=== PATIENT | female | born 1980 | race Caucasian/White ===

== ENCOUNTER → 2017-07-31 | Outpatient (CLI) | payer OTHER ==
--- NOTE | 2017-07-31 17:33 | EXE ---
[place] [address] STRESS ECHOCARDIOGRAM Name: DOROTHEA RAZO Room: [facility]#: [id number] Admission: 07/31/17 Attend Phys: Suzie Solorzano, Discharge: Date of : 78 Date of Service: 07/31/17 1733 Report #: [id number] THIS REPORT FOR: //name// APPROVED REPORT Study performed: 07/31/2017 11:33:12 Exam: Stress Echocardiogram Indication: Dyspnea , Tachycardia Patient Location: Out-Patient Stress Nurse: Desire Loza RN Supervising Physician: Rhett Russell MD Status: routine Ht: 5 ft 3 in HR: 60 bpm BP: 114/74 mmHg Medical History Cardiac Risk Factors: Hyperlipidemia, FHX of CAD, HTN Procedure The patient underwent an Exercise Stress Test using the Blake Protocol. Blood pressure, heart rate, and EKG were monitored. An Echocardiogram was performed by copy room technician in four stages in quad fashion. At peak stress, four selected images were obtained and placed side by side with resting images for comparison. Stress Test Details Stress Test: Exercise stress testing was performed using a Blake protocol. HR Resting HR: 60 bpm Max Heart Rate (APMHR): 183 bpm Max HR Achieved: 169 bpm Target HR (85% APMHR): 155 bpm % of APMHR: 92 Recovery HR: 82 bpm HR response to stress: Normal HR response to stress BP Resting BP: 114/74 mmHg Max BP: 144/74 mmHg Recovery BP: 120/79 mmHg ECG Resting ECG: Sinus Rhythm Stress ECG: [place] [address] STRESS ECHOCARDIOGRAM Name: DOROTHEA RAZO Room: [facility]#: [id number] Admission: 07/31/17 Attend Phys: Suzie Solorzano, Discharge: Date of : 78 Date of Service: 07/31/17 1733 Report #: [id number] Maximum ST Deviation: 0 mm Arrhythmia: None Recovery ECG: Sinus Rhythm Recovery ST Deviation: 0 mm Recovery Arrhythmia: None Clinical Reason for Termination: Maximal effort, Completed protocol, Dyspnea Exercise duration: 12 min sec Highest Stage Achieved: Stage 4: 4.2 mph at 16% grade. Exercise capacity: 13.48 METs Pre-Stress Echo The resting Echocardiogram showed normal left ventricular contractility with an estimated Ejection Fraction of about 55-60%. Post-Stress Echo The stress Echocardiogram showed normal left ventricular contractility with an estimated Ejection Fraction of about >70%. Conclusion Clinical Response: Non-ischemic Exercise Capacity: Superior Stress ECG Response: Non-ischemic Stress Echo Images: Non-ischemic low risk stress echo for future cardiac events Other Information Study Quality: Good <Conclusion> low risk stress echo for future cardiac events <ELECTRONICALLY SIGNED> By: Rhett Russell MD, FACC 07/31/17 1733 1733 173 Rhett Russell MD, FACC /INF
--- NOTE | 2017-07-31 17:38 | 2DMMODE ---
[place] [address] 2 D/M-MODE ECHOCARDIOGRAM Name: DOROTHEA RAZO Room: [facility]#: [id number] Admission: 07/31/17 Attend Phys: Suzie Solorzano, Discharge: Date of : 78 Date of Service: 07/31/17 1737 Report #: [id number] THIS REPORT FOR: //name// APPROVED REPORT Study performed: 07/31/2017 10:15:56 EXAM: Comprehensive 2D, Doppler, and color-flow Echocardiogram Patient Location: Out-Patient Status: routine BSA: 1.74 HR: 58 bpm BP: 118/80 mmHg Other Information Study Quality: Good Indications Tachycardia 2D Dimensions IVSd: 14.34 (7-11mm) LVOT Diam: 20.05 (18-24mm) LVDd: 41.86 mm PWd: 8.98 (7-11mm) Ascending Ao: 27.24 (22-36mm) LVDs: 19.62 (25-40mm) Aortic Root: 24.01 mm Volumes Left Atrial Volume (Systole) LA ESV Index: 15.30 mL/m2 Aortic Valve AoV Peak Kyaw.: 1.27 m/s AO Peak Gr.: 6.46 mmHg LVOT Max P.51 mmHg AO Mean Gr.: 3.85 mmHg LVOT Mean P.64 mmHg LVOT Max V: 1.17 m/s AO V2 VTI: 26.79 cm LVOT Mean V: 0.74 m/s VALE (VTI): 3.13 cm2 LVOT V1 VTI: 26.51 cm Mitral Valve E/A Ratio: 1.52 MV Decel. Time: 227.91 ms MV E Max Kyaw.: 0.74 m/s MV PHT: 66.09 [place] [address] 2 D/M-MODE ECHOCARDIOGRAM Name: DOROTHEA RAZO Room: [facility]#: [id number] Admission: 07/31/17 Attend Phys: Suzie Solorzano, Discharge: Date of : 78 Date of Service: 07/31/17 1737 Report #: [id number] MVA (PHT): 3.33 cm2 TDI E/Lateral E': 3.70 E/Medial E': 6.73 Medial E' Kyaw.: 0.11 m/s Lateral E' Kyaw.: 0.20 m/s Pulmonary Valve PV Peak Kyaw.: 0.94 m/s PV Peak Gr.: 3.50 mmHg Left Ventricle The left ventricle is normal size. There is normal LV segmental wall motion. There is normal left ventricular wall thickness. Left ventricular systolic function is normal. The left ventricular ejection fraction is within the normal range. LVEF is 55-60%. The left ventricular diastolic function is normal. Right Ventricle The right ventricle is normal size. The right ventricular systolic function is normal. Atria The left atrium size is normal. The right atrium size is normal. Aortic Valve The aortic valve is normal in structure. No aortic regurgitation is present. There is no aortic valvular stenosis. Mitral Valve The mitral valve is normal in structure. Trace mitral regurgitation. No evidence of mitral valve stenosis. Tricuspid Valve The tricuspid valve is normal in structure. There is no tricuspid valve regurgitation noted. Pulmonic Valve The pulmonary valve is normal in structure. There is no pulmonic valvular regurgitation. Great Vessels The aortic root is normal in size. IVC is normal in size and collapses with >50% inspiration [place] [address] 2 D/M-MODE ECHOCARDIOGRAM Name: LUDWIG ALEXANDRODOROTHEA Emmanuel Room: [facility]#: [id number] Admission: 07/31/17 Attend Phys: Suzie Solorzano, Discharge: Date of : 78 Date of Service: 07/31/17 1737 Report #: [id number] There is no pericardial effusion. <Conclusion> Left ventricular systolic function is normal. The left ventricular ejection fraction is within the normal range. <ELECTRONICALLY SIGNED> By: Rhett Russell MD, FAC 07/31/17 1737 173 [id number] Rhett Russell MD, [facility] /INF
== END ==
LOC: M.CRD 10:00
DX: R06.00 Dyspnea, unspecified (principal); R00.0 Tachycardia, unspecified